=== PATIENT | female | born 1990 | race Caucasian/White ===

== ENCOUNTER 2022-06-12 10:31 | Emergency (ER) | payer SELFPAY ==
[~2022-06-12] VITALS: Ht 157.5 cm; Wt 82.0 kg
[2022-06-12 10:58] VITALS: BP 117/68
[2022-06-12] MEDS ORDERED: ERYT1OIN6 EACHEYE (14:10)
== END 2022-06-12 14:34 | disposition home or self-care (01) ==
LOC: ER 11:12
DX: H00.013 Hordeolum externum right eye, unspecified eyelid (principal)
CPT/HCPCS: 81025; 99282